=== PATIENT | female | born 1990 | race Caucasian/White ===

== ENCOUNTER 2020-08-22 12:10 | Emergency (ER) | payer OTHER ==
[~2020-08-22] VITALS: Ht 167.6 cm; Wt 102.5 kg
[~2020-08-22 12:10] MED LIST: Naprosyn500 MG PO
== END 2020-08-22 13:57 | disposition home or self-care (01) ==
LOC: ER 12:10
DX: L05.01 Pilonidal cyst with abscess (principal); F17.200 Nicotine dependence, unspecified, uncomplicated
CPT/HCPCS: 99282

== ENCOUNTER → 2020-09-29 | Outpatient (CLI) | payer OTHER ==
[2020-10-09 10:17] LABS: ANABASINE <1 ng/mL (.); COTININE <10 ng/mL (.); NICOTINE <10 ng/mL (.)
== END | disposition home or self-care (01) ==
LOC: OLS 09:34 → LAB SHORT 09:34 → LAB FUT 09-22 15:25 → EDSTATUS 09-22 15:25
PROVIDERS: Surgery
DX: F17.209 Nicotine dependence, unspecified, with unspecified nicotine-induced disorders (principal)
CPT/HCPCS: G0480

== ENCOUNTER 2020-10-18 09:23 | Day surgery (SDC) | payer OTHER ==
[~2020-10-18] VITALS: Ht 167.6 cm; Wt 103.6 kg
--- NOTE | 2020-10-18 10:41 | NUR ---
Patient up to Ambulate independently. Gait steady. Patient confirms NPO status and agrees with scheduled surgery. History, Chart, Medications and Allergies reviewed before start of procedure. Lungs clear T/O to Auscultation. Patient reports completing Chlorhexadine shower X2 prior to admission to hospital. NEGATIVE.
--- NOTE | 2020-10-18 14:53 | NUR ---
discharge and drain instructions given to patient and mom cindy and pt discharged to home, denies complaints
== END 2020-10-18 22:57 | disposition home or self-care (01) ==
LOC: ORSCMMR 09:23
PROVIDERS: Surgery
PROC: 0HX8XZZ Transfer Buttock Skin, External Approach (ICD-10-PCS; principal; 2020-10-18 11:30)
PROC: 0JB90ZZ Excision of Buttock Subcutaneous Tissue and Fascia, Open Approach (ICD-10-PCS; principal; 2020-10-18 11:30)
DX: L05.91 Pilonidal cyst without abscess (principal); E66.9 Obesity, unspecified; Z68.36 Body mass index [BMI] 36.0-36.9, adult; F17.210 Nicotine dependence, cigarettes, uncomplicated
CPT/HCPCS: 88304; A9270; J1100; J1885; J1956; J2250; J2405; J2704; J2710; J3010; J7120